=== PATIENT | female | born 1995 | race American Indian/Alaskan Native ===

== ENCOUNTER 2020-03-08 12:56 | Emergency (ER) | payer SELFPAY ==
[2020-03-08 13:05] VITALS: BP 122/73
--- NOTE | 2020-03-08 15:05 | Emergency Department Report ---
Chief Complaint: Medical Clearance Stated Complaint: SONOGRAM Time Seen by Provider: 03/08/20 14:16 - HPI History of Present Illness: This 25-year-old female has never been presents the ED wanting an ultrasound because she found out last week that she was . - ROS Review of Systems: As noted in HPI - Exam Vital Signs: Vital Signs 03/08/20 13:04 Temperature 98.2 F Pulse Rate 78 Respiratory 18 Rate Blood Pressure 122/73 [Right] O2 Sat by Pulse 100 Oximetry Physical Exam: GENERAL: Alert and oriented x3, no apparent distress, Normal Gait, atraumatic. HEAD: Head is normocephalic and a-traumatic. SKIN: Warm and dry, No lesions, No ulceration or induration present. MSE screening note: Focused history and physical exam performed. Due to findings the following was ordered: ED Medical Decision Making - Medical Decision Making This 25-year-old female presents to ED wanting an ultrasound because she found out that she was last week. Patient states she took a couple of test that was positive last week. Patient presented with no symptoms other than nausea and wanting an ultrasound. Discussed with patient at this is not a medical emergency and to follow-up with [facility] as needed for test and continued care if . Vital signs are normal patient is in no acute distress. Patient understands instructions and states will follow-up. ED Disposition for MSE Clinical Impression: Physically well but worried, Nausea Disposition: MED SCREENING EXAM-LEFT Is pt being admited?: No Does the pt Need Aspirin: No Condition: Stable Instructions: (ED), Morning Sickness (ED) Additional Instructions: Make sure to follow up with the [facility] as discussed. Take josesito products and use as needed for nausea. Take only Tylenol products if needed. Call [facility] office and make an appointment as soon as possible. If you have any worsening symptoms or develop new symptoms please return to ED immediately. Referrals: [facility] [Provider Group] - 3-5 Days [facility] [Provider Group] - 3-5 Days [facility] [Provider Group] - 3-5 Days Forms: Work/School Release Form(ED) Time of Disposition: 15:04
== END 2020-03-08 15:25 | disposition left against medical advice (07) ==
LOC: ED 12:56
DX: Z53.21 Procedure and treatment not carried out due to patient leaving prior to being seen by health care provider (principal)

== ENCOUNTER 2020-06-01 15:11 | Emergency (ER) | payer SELFPAY | END 2020-06-01 15:15 | disposition left against medical advice (07) | LOC: ED 15:11 | DX: R10.9 Unspecified abdominal pain (principal); Z53.21 Procedure and treatment not carried out due to patient leaving prior to being seen by health care provider ==